=== PATIENT | male | born 1955 | race Caucasian/White ===

== ENCOUNTER 2017-07-19 07:52 | Day surgery (SDC) | payer BC ==
[~2017-07-19 07:52] MED LIST: RINGER'S SOLUTION,LACTATED 1,000 ML IV PRN; ceFAZolin SODIUM 1 GM VIAL IV PRN
[2017-07-19] MEDS ORDERED: RINGER'S SOLUTION,LACTATED 1,000 ML IV ONE ×2 (08:23→09:55)
[2017-07-19] MEDS ORDERED: BUPIVACAINE HCL 50 ML VIAL IJ ONE (10:24)
--- NOTE | 2017-07-19 10:49 | OR ---
Operative Report - Dictated Report Narrative: Date: 07/19/2017 Physician: Alcides Newton M.D. Tube Test Technician: Leander Ortega PA-C Preoperative diagnosis: Left Cubital tunnel syndrome, left ulnar tunnel syndrome , left carpal tunnel syndrome Postoperative diagnosis: Left cubital tunnel syndrome, left ulnar tunnel syndrome, left carpal tunnel syndrome Procedure: Left ulnar nerve decompression at the cubital tunnel, left open carpal tunnel release Anesthesia: General Plus local Complications: None Estimated blood loss: Minimal Tourniquet time: 36 Minutes at 250 mmHg Specimens: None Retained implants: None Drains: None Indications: Pedro Is a 61 year-old male who has been followed in my clinic with complaints of cubital tunnel syndrome, ulnar tunnel syndrome and carpal tunnel syndrome. Physical exam as well as diagnostic testing showed compression of the ulnar nerve compatible with cubital tunnel syndrome and compression at the wrist consistent with ulnar tunnel syndrome. He also had EMG evidence of carpal tunnel syndrome. Conservative measures have failed including but not limited to activity modification, medications, and splinting. The risks, benefits, and alternatives were discussed in clinic. The risks being bleeding, infection, nerve, tendon, blood vessel injury, persistent pain, wound competitions, weakness, palm pain, need for additional procedures, and persistent symptoms. I discussed the plan would be for an open cubital tunnel release as well as an open carpal tunnel release at the wrist which would provide decompression of both the median and ulnar nerves at the wrist. Consent was obtained in the clinic. Procedure: After marking the correct extremity in the preoperative holding area, a timeout was performed in the operating room. IV antibiotics consisting of 2 g of Ancef were administered prior to the procedure. The left upper extremity was then prepped and draped in usual sterile fashion. A sterile tourniquet was applied to the operative upper arm. The arm was exsanguinated and the tourniquet was inflated to 250 mmHg. We first turned our attention to the wrist. 0.5% Marcaine without epinephrine was infused into the projected incision site. Using Loupe magnification, a longitudinal incision was made in line with the longitudinal hypothenar crease, or approximately in line with the ring finger, from just distal to the wrist flexion crease and extending approximately 2.5 cm distally. Blunt dissection and hemostasis with bipolar cautery was carried out throught the subcutaneous tissue and palmar fascia down to the level of the transverse carpal ligament. Ragnel retractors were used to retract the surrounding soft tissue and provide good visualization of the transverse carpal ligament. The transverse carpal ligament was then sharply incised longitudinally with a 15-blade scalpel. A [place] elevator was then slid underneath the transverse carpal ligament distally, protecting the median nerve , and the remaining distal portion of the transverse carpal ligament was sharply divided. This was then repeated proximally to divide the remaining proximal portion. Tenotomy scissors were used to divide any remaining transverse carpal ligament and palmar fascia distally being careful to avoid the superficial palmar arch. The distal forearm fascia was released ensuring that the median nerve was completely decompressed utilizing tenotomy scissors. The median nerve was then carefully inspected. Once it was felt that all the tissues overlying the median nerve were completely released, the wounds were thoroughly irrigated with saline and the wound packed with a dry sponge. We then turned our attention to the elbow. 0.5% Marcaine without epinephrine was infused into the projected incision site over the medial elbow. Using loupe magnification, a longitudinal incision centered over the cubital tunnel was made approximately 7 centimeters in length. Blunt dissection was carried down to the subcutaneous tissues using bipolar cautery for hemostasis. Care was taken to protect the identified underlying cutaneous nerves. The ulnar nerve was identified as it passed through the medial intermuscular septum along the distal triceps. A release of the canal in this area as the ulnar nerve passed anterior to posterior was performed in order to decompress the nerve at this site. The nerve was dissected releasing the overlying soft tissues while maintaining the vascularity of the nerve down to the area of the medial epicondyles and Ramirez's ligament. The nerve was completely decompressed as it passed posterior to the medial condyle and was followed into the flexor carpi ulnaris. The deep fascia of the flexor carpi ulnaris muscle was released in order to decompress the nerve at this site. The first branch of the ulnar nerve was protected as well as any identified recurrent branches. The elbow was placed through range of motion and it was noted that the nerve was not unstable nor did it appear to be under tension as it passed behind the medial epicondyle. For this reason it was not felt that a transposition was necessary. Once it was felt that we had completely released the compressive structures on the ulnar nerve, the wounds were thoroughly irrigated and the tourniquet was deflated. Hemostasis at both the wrist and elbow was obtained using pressure and bipolar cautery. Once adequate hemostasis was in place local anesthetic was placed in the skin edges, and the subcutaneous tissue of the elbow was closed with interrupted Vicryl. The skin at both the elbow and wrist was closed with interrupted 4-0 nylon and sterile dressings consisting of Xeroform, 4 x 4, soft roll, a plaster dorsal wrist splint and Shiva wrap was applied. All sponge, needle, blade, and instrument counts were correct prior to closing the wounds. The patient was awoken and transferred to the postanesthesia care unit in stable condition.
[2017-07-19 12:06] VITALS: BP 120/72
== END 2017-07-19 07:53 | disposition home or self-care (01) ==
LOC: AMB 07:52
PROVIDERS: ATTEND Orthopaedic Surgery
PROC: 01N50ZZ Release Median Nerve, Open Approach (ICD-10-PCS; principal; 2017-07-19 09:15)
PROC: 01N40ZZ Release Ulnar Nerve, Open Approach (ICD-10-PCS; 2017-07-19 09:15)
DX: G56.22 Lesion of ulnar nerve, left upper limb (principal); G56.02 Carpal tunnel syndrome, left upper limb; Z68.33 Body mass index [BMI] 33.0-33.9, adult